=== PATIENT | male | born 1960 | race Caucasian/White ===

== ENCOUNTER → 2018-04-27 | Outpatient (CLI) | payer OTHER ==
[2018-04-27] MEDS: ALBUTEROL SULFATE 2.5 MG/3 ML NEBU. NEB (08:06)
== END | disposition home or self-care (01) ==
LOC: PF 07:33
DX: J44.9 Chronic obstructive pulmonary disease, unspecified (principal)
CPT/HCPCS: 94060; 94640; J7613